=== PATIENT | female | born 1995 | race Hispanic/Latino ===

== ENCOUNTER 2021-08-31 09:20 | Emergency (ER) | payer OTHER ==
[~2021-08-31] VITALS: Ht 149.9 cm; Wt 61.2 kg
== END 2021-08-31 09:40 | disposition home or self-care (01) ==
LOC: ER 09:26
DX: M25.572 Pain in left ankle and joints of left foot (principal); S93.402A Sprain of unspecified ligament of left ankle, initial encounter; W10.8XXA Fall (on) (from) other stairs and steps, initial encounter; Y93.01 Activity, walking, marching and hiking; Y92.008 Other place in unspecified non-institutional (private) residence as the place of occurrence of the external cause
CPT/HCPCS: 99282